=== PATIENT | male | born 2000 | race Caucasian/White ===

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

== ENCOUNTER 2022-11-12 03:19 | Emergency (ER) | payer OTHER, BC ==
[2022-11-12 03:34] LABS: BASOPHILS ABSOLUTE AUTO 0.02 K/mm3 (0.01-0.08); BASOPHILS PERCENT AUTO 0.1 % (0.1-1.2); EOSINOPHILS ABSOLUTE AUTO 0.05 K/mm3 (0.04-0.54); EOSINOPHILS PERCENT AUTO 0.4 (0.8-7.0); IMMATURE GRAN ABSOLUTE AUTO 0.05 K/mm3 (0.00-0.10); IMMATURE GRAN PERCENT AUTO 0.4 % (<=1.0); LYMPHOCYTES PERCENT AUTO 11.1 % (21.8-53.1); MEAN CORPUSCULAR HEMOGLOBIN 30.6 pg (25.7-32.2); MEAN CORPUSCULAR VOLUME 87.5 fl (79.0-92.2); MEAN PLATELET VOLUME 11.8 fl (9.4-12.3); MONOCYTES ABSOLUTE AUTO 1.08 K/mm3 (0.30-0.82); NEUTROPHILS ABSOLUTE AUTO 10.83 K/mm3 (1.78-5.38); PLATELET COUNT,PLT 199 K/mm3 (163-337); RED BLOOD CELL COUNT 4.57 M/mm3 (4.63-6.08); WHITE BLOOD CELL COUNT,WBC 13.53 K/mm3 (4.23-9.07)
[2022-11-12 03:54] LABS: A/G RATIO 1.2 (1-2); ALBUMIN 4.2 g/dl (3.4-5.0); ANION GAP 15.3 (5-15); BILIRUBIN TOTAL 1.3 mg/dL (0.2-1.0); BUN/CREATININE RATIO 13.3 (14-18); CALCIUM 8.6 mg/dL (8.5-10.1); CREATININE 1.2 mg/dL (0.7-1.3); EST CRCL DRUG DOSING (CG) 86.4 mL/min; ETHANOL BLOOD MEDICAL 0.12 gm% (0.00); POTASSIUM,K 3.3 mEq/L (3.5-5.1); PROTEIN TOTAL,TP 7.6 g/dl (6.4-8.2)
[2022-11-12] MEDS ORDERED: Ondansetron 4 MG/2 ML SDV IVPUSH ONE (04:59)
[2022-11-12] MEDS ORDERED: Ondansetron 4 MG/2 ML SDV ONE (04:59)
[2022-11-12] MEDS ORDERED: Morphine 4 MG/ML Syringe IVPUSH ONE (05:12)
== END 2022-11-12 06:12 ==
LOC: JD.ED 03:19
DX: S22.32XA Fracture of one rib, left side, initial encounter for closed fracture (principal); S42.202A Unspecified fracture of upper end of left humerus, initial encounter for closed fracture; S37.032A Laceration of left kidney, unspecified degree, initial encounter; V86.65XA Passenger of 3- or 4- wheeled all-terrain vehicle (ATV) injured in nontraffic accident, initial encounter; Y92.410 Unspecified street and highway as the place of occurrence of the external cause
CPT/HCPCS: 36415; 70450; 71260; 72125; 73590; 74177; 80053; 80307; 85025; 96374; 96375; 99285; J2270; J2405; 99284